=== PATIENT | female | born 1990 | race Caucasian/White ===

== ENCOUNTER → 2018-05-08 11:40 | Outpatient (CLI) | payer MEDICAID, SELFPAY | PROVIDERS: Family Provider Student in an Organized Health Care Education/Training Program; PCP Student in an Organized Health Care Education/Training Program; Visit Provider Family Medicine | DX: R00.2 Palpitations (principal) | CPT/HCPCS: 93225; 93226 ==

== ENCOUNTER 2019-12-11 17:05 | Outpatient (CLI) | payer BC, SELFPAY ==
[2017-05-06 10:44] VITALS: BMI 22.1
[2019-12-11 17:41] VITALS: BP 112/72; PULSE 87; TEMP 98.2
[2019-12-11 17:56] VITALS: BMI 28.5
--- NOTE | 2019-12-14 05:54 | OB.TRI.NOTE ---
History of Present Illness Date of Service: 12/11/19 Was patient seen by the physician?: No Reason For Visit: R/O LABOR Date of Service: 12/11/19 Final COLEEN Source: US <20 weeks Gestational age: 40 1/ Allergies No Known Allergies Allergy (Verified 12/12/19 17:17) NST - FHR Rate Baby A Baseline: 135 Variability:: Moderate Accelerations:: 15 x 15 Decelerations:: None NST Reactive:: Yes FHR Category:: Category I Uterine Activity:: irreg ctxs Impression/Plan 40 1/7 weeks nulliparrous patient with false labor home w/ labor precautions
== END 2019-12-11 20:10 | disposition home or self-care (01) ==
LOC: WPOUT 17:10 → OBT 17:10
PROVIDERS: PCP Student in an Organized Health Care Education/Training Program; Referring Provider Advanced Practice Midwife; Visit Provider Advanced Practice Midwife
DX: O47.1 False labor at or after 37 completed weeks of gestation (principal); Z3A.40 40 weeks gestation of pregnancy
CPT/HCPCS: 59025; 59050; 99218; G0378

== ENCOUNTER 2019-12-12 14:30 | Inpatient (IN) | payer BC, SELFPAY ==
[2019-12-11 17:56] VITALS: BMI 28.5
[2019-12-12] VITALS (38 sets, daily range): BP systolic 82–125; BP diastolic 54–81; PULSE 74–108; TEMP 96.4–99; O2SAT 93–100; BMI 28.5
--- NOTE | 2019-12-12 02:27 | OB.TRI.PN ---
Progress Notes Date of Service: 12/12/19 Progress Note: Presented to triage with irregular contractions ranging from 3-10 minutes apart. No leakage of fluid, vaginal bleeding or other concerns. Good movements. Breathing through contractions. O: FHR 135, moderate variability, accels, no decels, Reactive TOCO:every 5-10 minutes, moderate to palpation Cervix: 1.5cm/70%/-1 A: False Labor P: 1) Cervical exam unchanged. Discharge home and reviewed by nursing staff labor instructions.
[2019-12-12] MEDS: morphine 10 MG/ML Syringe IM (02:56)
[2019-12-12] MEDS: proMETHazine 25 MG/ML Syringe 12.5 MG IM (02:56)
[2019-12-12] MEDS: Lactated Ringers 1,000 ML 50 ML IV (14:47)
[2019-12-12] MEDS: Lactated Ringers 500 ML 999 ML IV (14:52)
[2019-12-12 15:05] LABS: Absolute Lymphocyte Count 1.44 X10^3/uL (0.83-4.51); Absolute Neutrophil Count 9.7 X10^3/uL (2.0-7.7); Basophil# 0.01 X10^3/uL; Basophil% 0.1 % (0-1); Eosinophil# 0.04 X10^3/uL; Eosinophils% 0.3 % (0-5); Hematocrit 40.1 % (37-47); Hemoglobin 13.6 g/dL (12.0-15.0); Lymphocyte # 1.44 X10^3/ul (4.0); Lymphocyte % 11.9 % (19-41); Mean Corp Hgb Conc 33.9 g/dL (32-36); Mean Corpuscular Hgb 30.6 pg (27.0-32.0); Mean Corpuscular Volume 90.1 fL (81-99); Mean Platelet Vol. 10.3 fl (6.2-12.0); Monocyte# 0.86 X10^3/uL; Monocyte% 7.1 % (0-10); NRBC Flagged by Analyzer 0 % (0-5); Neutrophil # 9.67 X10^3/uL (2.7-7.7); Platelet Count 203 K/mm3 (150-450); RBC Distribution Width CV 12.7 % (11.6-14.6); RBC Distribution Width SD 41.7 fl (35.1-43.9); Red Blood Count 4.45 M/mm3 (4.2-5.4); White Blood Count 12.1 K/mm3 (4.4-11.0)
[2019-12-12] MEDS: fentaNYL-bupivacaine (epidural) 100 ML BAG EPIDURAL ×2 (16:15→20:42)
[2019-12-12] MEDS: Ondansetron 4 MG/2 ML Vial IV (17:05)
[2019-12-12] MEDS: Lactated Ringers 1,000 ML 200 ML IV ×2 (18:01→22:56)
--- NOTE | 2019-12-12 18:07 | HP.PCM_ITS ---
History Date of Admission: 12/12/19 Final COLEEN: 12/10/19 Gestational age: 40 Weeks and 2 Days History of this : This is a 29 year-old, G 1P0 @ 40.2 weeks with SROM in office 2pm, clear fluid. pt denies other concerns today. Allergies No Known Allergies Allergy (Verified 12/12/19 17:17) Home Medications: Home Medications Vits [Prenatabs FA] 1 tab PO DAILY 12/11/19 Smoking Status: Never smoker Alcohol: None Number of Fetus(es): 1 NST - FHR Rate Baby A Baseline: 140 Variability:: Moderate Accelerations:: 15 x 15 Decelerations:: None NST Reactive:: Yes FHR Category:: Category I Uterine Activity:: 2-5 min History Past Pregnancies: Past Pregnancies Delivery Date Name GA/ Weeks Outcome Route Wt Sex Labor Length Anesthesia Delivery Location Provider FOB Expected Delivery Method: Spontaneous Vaginal Physical Exam General: Alert, Oriented x3 Abdomen: Soft, Non Tender, Gravid Neurological: Cranial nerves II-XII grossly intact FIELD ARTILLERY CANNONEER: Normal external genitalia Estimated gestational size: Large for gestational age - 6lb5oz at 34 weeks- estimate around 8.5--9lbs. Presentation: Cephalic Cervix Dilation (cm): 4.5 Station: -3 Effacement (%): 90 Assessment/Plan This is a 29 year-old, @ 40.2 weeks, in labor 1) admit to L&D 2) monitor fhr/toco 3) anticipate 4) OP position on exam- maternal positions changes recommended, not able to manually rotate 5) Pitocin if indicated 6) epidural in place
[2019-12-13] VITALS (59 sets, daily range): BP systolic 96–126; BP diastolic 51–87; PULSE 66–109; RESP 15–18; TEMP 36.3–37.6; O2SAT 80–100
[2019-12-13] MEDS: Oxytocin 30 units/NS 500 ml 30 UNITS/500 ML IV.SOLN IV (00:31)
[2019-12-13] MEDS: Mag Hydrox/Al Hydrox/Simeth 30 ML UDC PO (01:13)
[2019-12-13] MEDS: fentaNYL-bupivacaine (epidural) 100 ML BAG EPIDURAL (02:06)
--- NOTE | 2019-12-13 02:09 | PCM.PN.BLA ---
Progress Note pt seen at bedside, pushing well. Contractions area spaced out- pitocin was started previously to help with ctx frequency and maternal pushing efforts. FHR tracing reviewed.
[2019-12-13] MEDS: Lactated Ringers 1,000 ML 200 ML IV (03:55)
--- NOTE | 2019-12-13 04:15 | PCM.PN.BLA ---
Progress Note been pushing intermittently with patient- good maternal efforts with minimal decent of head. head remains at +2 station - pushing for nearly 4 hours. At this time Reviewed with patient again that Primary cs for arrest of descent. pt and were given time to discuss alone- will notify us of decision shortly.
--- NOTE | 2019-12-13 04:21 | PCM.PN.BLA ---
Progress Note Decision for C/S for Arrest of descent - reviewed risks of cs including but not limited to bleeding, infection, injury to pelvic structures. pt and wish to proceed. OR team notified. Epidural in place. Azithromycin and Ancef ordered.
--- NOTE | 2019-12-13 04:23 | OP.PCM_ITS ---
Delivery Classification: CHANDA Final COLEEN: 12/10/19 Final COLEEN Source: US <20 weeks Gestational age: 40 Weeks and 3 Days residential nurse: Abrahan Abad Type of Anesthesia:: Epidural Date of Procedure: 12/13/19 Pre-Operative Diagnosis: term gestation, Arrest of descent Post-Operative Diagnosis: same, live male Indications: arrest of descent Indications for : Arrrest of Descent Description of Procedure: After informed consent was obtained the patient was taken the operating room she was given spinal anesthesia. She was then placed in the supine position. She was prepped and draped in the normal sterile fashion. Anesthesia was found to be adequate. At this time a Pfannenstiel skin incision was made with a knife was carried down to the underlying layer of the fascia. The fascial incision was then extended laterally using curved Hickey scissor. Attention was then turned to the superior aspect of the fascial edge was grasped with 2 straight [place] clamps tented up and the rectus muscle dissected off sharply using curved Hickey scissor. Attention was then turned to the inferior aspect where again [place] clamps were placed in the rectus muscles were tented up and the fascia was dissected off sharply using the curved Hickey scissor. Rectus muscles were then in the midline bluntly and peritoneum was entered bluntly. Gentle opposing traction was placed. At this time the vesicouterine peritoneum was identified. Scalpel was used to make a uterine incision in a low transverse fashion. The uterus was then entered bluntly gentle opposing traction was placed to extend this incision. with assistance from push up of head from vagina i was able to disengage head and rotate and flex infant head from a direct OP position. 's head was brought to the uterine incision was delivered atraumatically. Cord was clamped and cut was handed to the waiting nursery team. The Placenta was removed from the uterus. The uterus was then removed from the abdominal cavity. The uterus was cleared of all clots and debris using a lap. At this time the uterine incision was reapproximated using #1 Vicryl in a running locked fashion. left lateral extension through broad ligament. Repaired superficially to obtain hemostasis. Pt had what appeared to be significant endometriosis of posterior uterus, and tubes. Pressure was held on extension site and floseal was placed- excellent hemostasis appreciated. On posterior aspect of uterus the right side where there appeared to be significant endometriotic disease was bleeding-running locking suture with 2-0 vicryl placed- followed by pressure and douglas- good hemostasis was noted. Posterior cul-de-sac was then cleared of all clots and debris. Uterus was placed back in the abdominal cavity. Gutters were cleared of all clots and debris. Uterine incision was reevaluated and noted to be of excellent hemostasis including the Left lower broad ligament extension. At this time the peritoneum and muscle was grasped with Kellys reapproximated using #2 Vicryl suture in a running fashion. Douglas placed of rectus muscle. Fascia was then reapproximated using #1 Vicryl in a running fashion. Douglas placed in Subcu layer and it was then reapproximated with #2 0 plain gut suture in an interrupted fashion. Subcu layer was closed using 4-0 Monocryl in a subcu fashion. Dry sterile dressing was applied. Instrument lap needle count correct ?2. Anticipated normal postoperative course. i discussed with and patient that I DO NOT RECOMMEND vaginal delivery for future pregnancies. Amniotic Membrane Rupture Type: Spontaneous Amniotic Fluid Description: Clear Placenta Disposition: [facility] Drain: [place] to straight drain Fluids Replaced: 1200 Cord Entanglement: None Cord Vessel Description: 3 Vessels Esitmated Blood Loss (ml): 700 Infant Gender: Male (1 minute): 8 (5 minute): 9 Delayed cord clamping: No Antibiotic Given: Ancef 2 grams IV x1, Zithromax 500 mg/5 mL X1 Pt instructed on risks of surgery: Bleeding, Anesthesia Risks, Infection, Injury to surrounding structure(s) including bowel and bladder Complications: None - Admit VTE Documentation VTE Present on Admission: Yes VTE Mechan Device Prophylaxis: SCD's VTE Pharm Prophylaxis ordered?: No
[2019-12-13] MEDS: Sodium Citrate/Citric Acid 30 ML UDC PO ×2 (04:35→04:37)
[2019-12-13] MEDS: Cefazolin 2 GM in 0.9% Normal Saline 100 ML IV (04:50)
[2019-12-13] MEDS: Oxytocin 30 units/NS 500 ml 30 UNITS/500 ML IV.SOLN 167 UNITS IV (06:22)
[2019-12-13] MEDS: Lactated Ringers 1,000 ML 100 ML IV (06:26)
[2019-12-13] MEDS: HYDROmorphone 1 MG/ML Syringe IV ×5 (06:49→22:34)
[2019-12-13] MEDS: 0.9% Saline Lock 10 ML Syringe IV ×5 (06:49→22:33)
--- NOTE | 2019-12-13 08:42 | NURSING ---
Indwelling vo catheter present. WNL.
[2019-12-13] MEDS: Acetaminophen 500 MG Tablet 1000 MG PO ×2 (09:52→21:13)
--- NOTE | 2019-12-13 10:30 | NURSING ---
Epidural catheter removed. Blue tip intact. Patient tolerated well.
[2019-12-13 11:59] LABS: Hematocrit 31.6 % (37-47); Hemoglobin 10.7 g/dL (12.0-15.0); Mean Corp Hgb Conc 33.9 g/dL (32-36); Mean Corpuscular Hgb 31.1 pg (27.0-32.0); Mean Corpuscular Volume 91.9 fL (81-99); Mean Platelet Vol. 10.2 fl (6.2-12.0); Platelet Count 140 K/mm3 (150-450); RBC Distribution Width CV 12.6 % (11.6-14.6); RBC Distribution Width SD 41.6 fl (35.1-43.9); Red Blood Count 3.44 M/mm3 (4.2-5.4); White Blood Count 17.1 K/mm3 (4.4-11.0)
[2019-12-13 12:13] LABS: Anion Gap 8 (5-15); BUN 7 mg/dL (7-18); BUN/Creat Ratio 8.8 RATIO (10-20); Calcium,Total 8.1 mg/dL (8.5-10.1); Chloride 109 mmol/L (98-107); Creatinine, Serum 0.79 mg/dL (0.55-1.02); EST Glomerular Filtration Rate 91 mL/min (>60); Est Glom Filt Rate - Afr Amer 110 mL/min (>60); Glucose 110 mg/dL (74-106); Potassium 3.4 mmol/L (3.5-5.1); Sodium Level 138 mmol/L (136-145)
[2019-12-13] MEDS: Ketorolac 30 MG/ML Syringe IV ×2 (13:03→18:44)
[2019-12-13] MEDS: Senna/Docusate Sodium 1 Tablet PO (20:31)
[2019-12-13] MEDS: oxyCODONE 5 MG Tablet PO (20:31)
--- NOTE | 2019-12-13 22:50 | NURSING ---
This RN did some coughing and deep breathing with patient. No IS in room. Respiratory called to bring IS down when able.
[2019-12-14] VITALS (10 sets, daily range): BP systolic 96–110; BP diastolic 55–69; PULSE 74–88; RESP 15–18; TEMP 36.4–36.8; O2SAT 96–97
[2019-12-14] MEDS: Ketorolac 30 MG/ML Syringe IV ×5 (00:08→23:55)
[2019-12-14] MEDS: 0.9% Saline Lock 10 ML Syringe IV ×5 (00:08→23:56)
[2019-12-14] MEDS: oxyCODONE 5 MG Tablet PO ×5 (00:43→23:14)
--- NOTE | 2019-12-14 05:45 | PN.OBGYN_ITS ---
Subjective: pain better controlled this am. Worse right than left. No N/V. Maria Elena. Po. Has been up to urinate. - Physical Exam Vitals/I&O's: Vital Signs Temp Pulse Resp BP Pulse Ox 98.2 F 74 15 96/55 L 97 12/14/19 04:18 12/14/19 04:18 12/14/19 04:18 12/14/19 04:18 12/14/19 04:18 Oxygen Delivery Method Room Air Weight: 82.554 kg Body Mass Index (BMI) 28.5 Intake and Output for Last 24 Hours 12/12/19 12/13/19 12/14/19 23:59 23:59 23:59 Intake Total 3487.50 / 3487.50 5500.87 / 5500.87 Output Total 400 / 400 2600 / 2600 200 / 200 Balance 3087.50 / 3087.50 2900.87 / 2900.87 -200 / -200 General: Alert, Cooperative, No apparent distress Abdomen: Soft, Distended - mildly, softl, Tender - appropriately, no rebound or guarding Extremities: Edema - 2+ Skin: Incision - bandage is clean, dry and intact Laboratory Results 12/13/19 11:40: WBC 17.1 H, RBC 3.44 L, Hgb 10.7 L, Hct 31.6 L, MCV 91.9, MCH 31.1, MCHC 33.9, RDW Std Deviation 41.6, RDW Coeff of [place] 12.6, Plt Count 140 L, MPV 10.2 12/13/19 11:40: Sodium 138, Potassium 3.4 L, Chloride 109 H, Carbon Dioxide 21.0, Anion Gap 8, BUN 7, Creatinine 0.79, Estim Creat Clear Calc 103.10, Est GFR (MDRD) Af Amer 110, Est GFR (MDRD) Non-Af 91, BUN/Creatinine Ratio 8.8 L, Glucose 110 H, Calcium 8.1 L Current Medications Acetaminophen (Tylenol) 1,000 mg PO Q8H PRN PRN PRN Reason: Pain Score 1-3/10;Temp>99.6F Last Admin: 12/13/19 21:13 Dose: 1,000 mg Documented by: Bisacodyl (Dulcolax) 10 mg RECTAL UD PRN PRN Reason: If no BM Hydrocortisone (Hytone) 1 applic TOPICAL TID PRN PRN; Protocol PRN Reason: Discomfort Lactated Ringer's () 1,000 mls @ 100 mls/hr IV .Q10H [facility] Last Admin: 12/14/19 03:03 Dose: Not Given Documented by: Naloxone HCl 4 mg/ Dextrose 504 mls @ 0 mls/hr IV .Q0M PRN; Protocol PRN Reason: Respiratory depression Ibuprofen (Motrin) 600 mg PO Q6H PRN PRN PRN Reason: Pain Score 1-3/10 Ketorolac Tromethamine (Toradol (Bkc)) 30 mg IV Q6H [facility] Stop: 12/15/19 06:01 Last Admin: 12/14/19 00:08 Dose: 30 mg Documented by: Methylergonovine Maleate (Methergine) 0.2 mg IM X1 PRN PRN Reason: Uterine Atony Naloxone HCl (Narcan) 0.02 mg IV Q1M PRN PRN Reason: RR <10 and pt unresponsive Ondansetron HCl (Zofran) 4 mg IV Q4H PRN PRN PRN Reason: Nausea Oxycodone HCl (Oxyir) 5 - 10 mg PO Q4H PRN PRN PRN Reason: Pain Score 4-10/10 Last Admin: 12/14/19 05:14 Dose: 10 mg Documented by: Prochlorperazine Edisylate (Compazine Iv) 10 mg IV Q6H PRN PRN PRN Reason: NAUSEA Senna/Docusate Sodium (Senokot-S, Sarah-Colace) 0 tablet PO DAILY PRN PRN Reason: Constipation Last Admin: 12/13/19 20:31 Dose: 2 tablet Documented by: Simethicone (Mylicon) 80 mg PO PCHS PRN PRN Reason: Indigestion/stomach pain Sodium Chloride () 5 - 15 ml IV UD PRN PRN Reason: SALINE FLUSH Last Admin: 12/14/19 00:08 Dose: 15 ml Documented by: Medical Necessity - Tobacco Use Smoking Status: Never smoker Assessment/Plan POD#1 s/p primary c/s for arrest of descent repeat cbc pending this am ambulate and doing well
[2019-12-14 06:12] LABS: Hematocrit 27.9 % (37-47); Hemoglobin 9.4 g/dL (12.0-15.0); Mean Corp Hgb Conc 33.7 g/dL (32-36); Mean Corpuscular Hgb 31.1 pg (27.0-32.0); Mean Corpuscular Volume 92.4 fL (81-99); Mean Platelet Vol. 9.9 fl (6.2-12.0); Platelet Count 123 K/mm3 (150-450); RBC Distribution Width CV 12.8 % (11.6-14.6); RBC Distribution Width SD 43.7 fl (35.1-43.9); Red Blood Count 3.02 M/mm3 (4.2-5.4); White Blood Count 14.4 K/mm3 (4.4-11.0)
[2019-12-14] MEDS: Acetaminophen 500 MG Tablet 1000 MG PO (08:11)
[2019-12-14] MEDS: Senna/Docusate Sodium 1 Tablet PO (20:20)
[2019-12-15] VITALS (10 sets, daily range): BP systolic 101–107; BP diastolic 54–71; PULSE 73–97; RESP 16; TEMP 36.8–36.9; O2SAT 96–97
[2019-12-15] MEDS: oxyCODONE 5 MG Tablet PO ×3 (04:03→22:23)
[2019-12-15] MEDS: Ketorolac 30 MG/ML Syringe IV (05:58)
[2019-12-15] MEDS: 0.9% Saline Lock 10 ML Syringe IV (05:58)
--- NOTE | 2019-12-15 08:23 | PCM.PN.OB ---
Subjective: Seen at bedside, doing well. Patient reports good pain control. Mild lochia. Breast-feeding going well. Denies any chest pain, shortness of breath, dizziness. Is voiding and ambulating without difficulty. Passing flatus. Pain is controlled. Requesting DC home tomorrow - Physical Exam Vitals/I&O's: Vital Signs Temp Pulse Resp BP Pulse Ox 98.2 F 75 16 101/65 97 12/15/19 02:12 12/15/19 02:12 12/15/19 02:12 12/15/19 02:12 12/14/19 04:18 Oxygen Delivery Method Room Air Weight: 82.554 kg Body Mass Index (BMI) 28.5 Intake and Output for Last 24 Hours 12/13/19 12/14/19 12/15/19 23:59 23:59 23:59 Intake Total 5500.87 / 5500.87 Output Total 2600 / 2600 200 / 200 Balance 2900.87 / 2900.87 -200 / -200 General: Alert, Oriented x3 Abdomen: Soft, Non-Distended, - - incision dressing dry and intact, Fundus firm Extremities: No Calf Tenderness Current Medications Acetaminophen (Tylenol) 1,000 mg PO Q8H PRN PRN PRN Reason: Pain Score 1-3/10;Temp>99.6F Last Admin: 12/14/19 08:11 Dose: 1,000 mg Documented by: Bisacodyl (Dulcolax) 10 mg RECTAL UD PRN PRN Reason: If no BM Hydrocortisone (Hytone) 1 applic TOPICAL TID PRN PRN; Protocol PRN Reason: Discomfort Naloxone HCl 4 mg/ Dextrose 504 mls @ 0 mls/hr IV .Q0M PRN; Protocol PRN Reason: Respiratory depression Ibuprofen (Motrin) 600 mg PO Q6H PRN PRN PRN Reason: Pain Score 1-3/10 Methylergonovine Maleate (Methergine) 0.2 mg IM X1 PRN PRN Reason: Uterine Atony Naloxone HCl (Narcan) 0.02 mg IV Q1M PRN PRN Reason: RR <10 and pt unresponsive Ondansetron HCl (Zofran) 4 mg IV Q4H PRN PRN PRN Reason: Nausea Oxycodone HCl (Oxyir) 5 - 10 mg PO Q4H PRN PRN PRN Reason: Pain Score 4-10/10 Last Admin: 12/15/19 04:03 Dose: 10 mg Documented by: Prochlorperazine Edisylate (Compazine Iv) 10 mg IV Q6H PRN PRN PRN Reason: NAUSEA Senna/Docusate Sodium (Senokot-S, Sarah-Colace) 0 tablet PO DAILY PRN PRN Reason: Constipation Last Admin: 12/14/19 20:20 Dose: 2 tablet Documented by: Simethicone (Mylicon) 80 mg PO PCHS PRN PRN Reason: Indigestion/stomach pain Sodium Chloride () 5 - 15 ml IV UD PRN PRN Reason: SALINE FLUSH Last Admin: 12/15/19 05:58 Dose: 10 ml Documented by: Medical Necessity - Tobacco Use Smoking Status: Never smoker Assessment/Plan POD#2, doing well routine care pain mgmt ambulation dc home tomorrow
[2019-12-15] MEDS: Ibuprofen 600 MG Tablet PO ×2 (12:50→20:31)
[2019-12-16 01:14] VITALS: BP 98/63; PULSE 69; PULSE 75; PULSE 77; RESP 16; TEMP 36.6; O2SAT 97
[2019-12-16] MEDS: Ibuprofen 600 MG Tablet PO (05:00)
--- NOTE | 2019-12-16 08:18 | PCM.PN.OB ---
Subjective: Patient seen at bedside, doing well. Patient reports good pain control. Mild lochia. Breast-feeding without difficulty. She is passing flatus and voiding without difficulty. Patient ready for DC home today. - Physical Exam Vitals/I&O's: Vital Signs Temp Pulse Resp BP Pulse Ox 97.8 F 77 16 98/63 97 12/16/19 01:14 12/16/19 01:14 12/16/19 01:14 12/16/19 01:14 12/16/19 01:14 Oxygen Delivery Method Room Air Weight: 82.554 kg Body Mass Index (BMI) 28.5 Intake and Output for Last 24 Hours 12/14/19 12/15/19 12/16/19 23:59 23:59 23:59 Output Total 200 / 200 Balance -200 / -200 General: Alert, Oriented x3 Abdomen: Soft, Non-Distended, - - Fundus firm, incision dressing dry and intact Extremities: No Calf Tenderness Neurological: Cranial nerves II-XII grossly intact Current Medications Acetaminophen (Tylenol) 1,000 mg PO Q8H PRN PRN PRN Reason: Pain Score 1-3/10;Temp>99.6F Last Admin: 12/14/19 08:11 Dose: 1,000 mg Documented by: Bisacodyl (Dulcolax) 10 mg RECTAL UD PRN PRN Reason: If no BM Hydrocortisone (Hytone) 1 applic TOPICAL TID PRN PRN; Protocol PRN Reason: Discomfort Naloxone HCl 4 mg/ Dextrose 504 mls @ 0 mls/hr IV .Q0M PRN; Protocol PRN Reason: Respiratory depression Ibuprofen (Motrin) 600 mg PO Q6H PRN PRN PRN Reason: Pain Score 1-3/10 Last Admin: 12/16/19 05:00 Dose: 600 mg Documented by: Methylergonovine Maleate (Methergine) 0.2 mg IM X1 PRN PRN Reason: Uterine Atony Naloxone HCl (Narcan) 0.02 mg IV Q1M PRN PRN Reason: RR <10 and pt unresponsive Ondansetron HCl (Zofran) 4 mg IV Q4H PRN PRN PRN Reason: Nausea Oxycodone HCl (Oxyir) 5 - 10 mg PO Q4H PRN PRN PRN Reason: Pain Score 4-10/10 Last Admin: 12/15/19 22:23 Dose: 5 mg Documented by: Prochlorperazine Edisylate (Compazine Iv) 10 mg IV Q6H PRN PRN PRN Reason: NAUSEA Senna/Docusate Sodium (Senokot-S, Sarah-Colace) 0 tablet PO DAILY PRN PRN Reason: Constipation Last Admin: 12/14/19 20:20 Dose: 2 tablet Documented by: Simethicone (Mylicon) 80 mg PO PCHS PRN PRN Reason: Indigestion/stomach pain Sodium Chloride () 5 - 15 ml IV UD PRN PRN Reason: SALINE FLUSH Last Admin: 12/15/19 05:58 Dose: 10 ml Documented by: Medical Necessity - Tobacco Use Smoking Status: Never smoker Assessment/Plan POD #3, doing well Routine care Ambulation Pain management DC home
--- NOTE | 2019-12-16 08:19 | DCINST_ITS ---
Discharge Diet: No Restrictions Discharge Activity: Return to Normal Activity, May Not Drive - for 2 weeks, May not drive while taking narcotic pain medications., May Shower, May Take a Tub Bath - in 7 days. May resume sexual activity in: 4-6 weeks Lifting Restrictions: 20 pounds Additional Activity Instructions:: Nothing in the vagina for 4-6 weeks. You may return to work/school in 6 weeks. Call your doctor if your incision/area has: Continuous Slow Oozing, Sudden Increased Bleeding, Increased Pain/ Swelling, Increased Redness, Foul Smelling Discharge Call your doctor if you observe: Fever of 101 or Higher, Using more than one pad per hour - for 2 hours Suture Line Care: Avoid Pulling/Pushing, Avoid Pinching/Bending Cleanse incision/area with: Keep Dressing Clean & Dry Additional Instructions: If you experience any of the following, contact your healthcare provider. * Bleeding that soaks a pad every hour for 2 hours * Fever 100.4 or higher * Unrelieved incision or abdominal pain * Swelling, redness, discharge or bleeding from your incision or episiotomy site * Your incision begins to separate * Problems urinating (including inability to urinate or burning while urinating). * Visual changes * Severe headache * Flu-like symptoms * Pain or redness in one of both of your breasts * Pain, warmth, tenderness or swelling in your legs, especially the calf area * Frequent nausea and vomiting * Symptoms of depression or anxiety If you experience any of the following, call 911 or go to the nearest Emergency Room. * Chest pain * Problems breathing * Seizure activity * Partial or complete paralysis of a body part, slurred speech, weakness or drooping of the face, or a sudden inability to walk or hold your balance Allergies/Adverse Reactions: Allergies No Known Allergies Allergy (Verified 12/12/19 17:17) Medications to take at Discharge Vits [Prenatabs FA ] 1 tab PO DAILY 12/11/19 Acetaminophen [Tylenol] 1,000 mg PO Q8H PRN PRN #60 tab 12/15/19 Ibuprofen [Motrin] 600 mg PO Q6H PRN PRN #60 tab 12/15/19 Oxycodone [Oxyir] 5 - 10 mg PO Q4H PRN PRN 7 Days #20 tab 12/15/19 Senna/Docusate Sodium [Senokot-S] 1 tab PO DAILY PRN #20 tab 12/15/19 SimETHICONE [Mylicon] 80 mg PO PCHS PRN #30 tab 12/15/19 The following prescriptions were given: Ibuprofen [Motrin] 600 mg PO Q6H PRN PRN #60 tab PRN Reason: Pain Score 1-3/10 [facility] SimETHICONE [Mylicon] 80 mg PO PCHS PRN #30 tab PRN Reason: Indigestion/stomach pain Transmission Status: [facility] Oxycodone [Oxyir] 5 - 10 mg PO Q4H PRN PRN 7 Days #20 tab PRN Reason: Pain Score 4-10/10 Transmission [facility] Senna/Docusate Sodium [Senokot-S] 1 tab PO DAILY PRN #20 tab PRN Reason: Constipation Transmission Status[facility] Acetaminophen [Tylenol] 1,000 mg PO Q8H PRN PRN #60 tab PRN Reason: Pain Score 1-3/10;Temp>99.6F Transmission Status[facility] Follow-Up: Call to make an appointment with your doctor for an incision check in 1-2 weeks. You will also need a 6 week post- follow up appointment. Test results from this visit will be discussed in further detail at your follow- up appointment, if applicable. Please Follow Up With: Myriam Ivey MD - Call to make an appointment for an incision check in 1-2 [phone] When: You will need a post- check in 6 weeks. Primary Care Physician: Jae Ochoa DO [Primary Care Provider] -
--- NOTE | 2019-12-16 08:21 | DS.PCM_ITS ---
Discharge Summary Date of Admission: 01/10/20 Date of Discharge: 12/16/19 Summary: Patient was admitted on 12/12/2019 in spontaneous labor. Patient progressed to fully dilated and pushed for approximately 4 hours with arrest of descent of the head. Patient underwent a primary low transverse section infant was in the OP position. She had a left broad ligament extension that was repaired and FloSeal applied. Hemoglobin hematocrit stayed stable postoperatively. She had an uncomplicated postoperative course. I discussed with the patient and her I do not recommend any vaginal deliveries would recommend a repeat section due to the extension. Patient was di scharged home on postoperative day 3 in stable condition. - Physical Exam Vitals/I&O's: Vital Signs Temp Pulse Resp BP Pulse Ox 97.8 F 77 16 98/63 97 12/16/19 01:14 12/16/19 01:14 12/16/19 01:14 12/16/19 01:14 12/16/19 01:14 Oxygen Delivery Method Room Air Weight: 82.554 kg Body Mass Index (BMI) 28.5 Intake and Output for Last 24 Hours 12/14/19 12/15/19 12/16/19 23:59 23:59 23:59 Output Total 200 / 200 Balance -200 / -200 Current Medications Acetaminophen (Tylenol) 1,000 mg PO Q8H PRN PRN PRN Reason: Pain Score 1-3/10;Temp>99.6F Last Admin: 12/14/19 08:11 Dose: 1,000 mg Documented by: Bisacodyl (Dulcolax) 10 mg RECTAL UD PRN PRN Reason: If no BM Hydrocortisone (Hytone) 1 applic TOPICAL TID PRN PRN; Protocol PRN Reason: Discomfort Naloxone HCl 4 mg/ Dextrose 504 mls @ 0 mls/hr IV .Q0M PRN; Protocol PRN Reason: Respiratory depression Ibuprofen (Motrin) 600 mg PO Q6H PRN PRN PRN Reason: Pain Score 1-3/10 Last Admin: 12/16/19 05:00 Dose: 600 mg Documented by: Methylergonovine Maleate (Methergine) 0.2 mg IM X1 PRN PRN Reason: Uterine Atony Naloxone HCl (Narcan) 0.02 mg IV Q1M PRN PRN Reason: RR <10 and pt unresponsive Ondansetron HCl (Zofran) 4 mg IV Q4H PRN PRN PRN Reason: Nausea Oxycodone HCl (Oxyir) 5 - 10 mg PO Q4H PRN PRN PRN Reason: Pain Score 4-10/10 Last Admin: 12/15/19 22:23 Dose: 5 mg Documented by: Prochlorperazine Edisylate (Compazine Iv) 10 mg IV Q6H PRN PRN PRN Reason: NAUSEA Senna/Docusate Sodium (Senokot-S, Sarah-Colace) 0 tablet PO DAILY PRN PRN Reason: Constipation Last Admin: 12/14/19 20:20 Dose: 2 tablet Documented by: Simethicone (Mylicon) 80 mg PO PCHS PRN PRN Reason: Indigestion/stomach pain Sodium Chloride () 5 - 15 ml IV UD PRN PRN Reason: SALINE FLUSH Last Admin: 12/15/19 05:58 Dose: 10 ml Documented by:
[2019-12-16 08:31] VITALS: BP 113/73; PULSE 83; RESP 16; TEMP 36.8; O2SAT 99
[2019-12-16 08:33] VITALS: BP 113/72; PULSE 83; TEMP 98.2
[2019-12-16] MEDS: oxyCODONE 5 MG Tablet PO (09:22)
[2019-12-16] MEDS: Senna/Docusate Sodium 1 Tablet PO (09:22)
== END 2019-12-16 10:35 | disposition home or self-care (01) | DRG 788 ==
PROVIDERS: Admitting Provider Obstetrics & Gynecology; PCP Student in an Organized Health Care Education/Training Program; Referring Provider Obstetrics & Gynecology; Visit Provider Obstetrics & Gynecology
DX: O62.1 Secondary uterine inertia (principal); Z37.0 Single live birth; Z3A.40 40 weeks gestation of pregnancy
CPT/HCPCS: 59025; 59050; 80048; 85025; 85027; 86850; 86900; 86901; 96372; 99218; J7120; A4216; G0378; J2405

== ENCOUNTER 2020-07-02 09:49 | Outpatient (RCR) | payer BC, SELFPAY ==
[2019-12-12 01:32] VITALS: BMI 28.5
== END 2020-07-16 23:59 ==
LOC: EMPH 09:49
PROVIDERS: PCP Student in an Organized Health Care Education/Training Program; Visit Provider Family Medicine Geriatric Medicine
DX: Z11.59 Encounter for screening for other viral diseases (principal)
CPT/HCPCS: 87635; U0003

== ENCOUNTER 2020-07-27 08:29 | Outpatient (RCR) | payer BC, SELFPAY ==
[2019-12-12 01:32] VITALS: BMI 28.5
== END 2020-08-16 23:59 ==
LOC: EMPH 08:29
PROVIDERS: Visit Provider Family Medicine Geriatric Medicine
DX: Z11.59 Encounter for screening for other viral diseases (principal)
CPT/HCPCS: 87635; U0003

== ENCOUNTER 2020-08-22 10:06 | Outpatient (RCR) | payer BC, SELFPAY ==
[2019-12-12 01:32] VITALS: BMI 28.5
== END 2020-09-15 23:59 ==
LOC: EMPH 10:06
PROVIDERS: Referring Provider Family Medicine Geriatric Medicine; Visit Provider Family Medicine Geriatric Medicine
DX: Z03.818 Encounter for observation for suspected exposure to other biological agents ruled out (principal)
CPT/HCPCS: 87426

== ENCOUNTER 2020-10-15 16:53 | Outpatient (RCR) | payer BC, SELFPAY ==
[2019-12-12 01:32] VITALS: BMI 28.5
== END 2020-10-16 23:59 ==
LOC: EMPH 16:53
PROVIDERS: Referring Provider Family Medicine Geriatric Medicine; Visit Provider Family Medicine Geriatric Medicine
DX: Z03.818 Encounter for observation for suspected exposure to other biological agents ruled out (principal)
CPT/HCPCS: 87426

== ENCOUNTER 2020-11-14 17:01 | Outpatient (RCR) | payer BC, SELFPAY ==
[2019-12-12 01:32] VITALS: BMI 28.5
== END 2020-11-16 23:59 ==
LOC: EMPH 17:01
PROVIDERS: Referring Provider Family Medicine Geriatric Medicine; Visit Provider Family Medicine Geriatric Medicine
DX: Z03.818 Encounter for observation for suspected exposure to other biological agents ruled out (principal)
CPT/HCPCS: 87426

== ENCOUNTER 2020-12-17 16:52 | Outpatient (RCR) | payer BC, SELFPAY ==
[2019-12-12 01:32] VITALS: BMI 28.5
== END 2021-01-14 23:59 ==
LOC: EMPH 16:52
PROVIDERS: Referring Provider Family Medicine Geriatric Medicine; Visit Provider Family Medicine Geriatric Medicine
DX: Z03.818 Encounter for observation for suspected exposure to other biological agents ruled out (principal)
CPT/HCPCS: 87426

== ENCOUNTER 2021-02-13 16:48 | Outpatient (RCR) | payer BC, SELFPAY ==
[2019-12-12 01:32] VITALS: BMI 28.5
== END 2021-02-13 23:59 ==
LOC: EMPH 16:48
PROVIDERS: Referring Provider Family Medicine Geriatric Medicine; Visit Provider Family Medicine Geriatric Medicine
DX: Z03.818 Encounter for observation for suspected exposure to other biological agents ruled out (principal)
CPT/HCPCS: 87426

== ENCOUNTER 2021-02-24 12:17 | Outpatient (RCR) | payer BC, SELFPAY ==
[2019-12-12 01:32] VITALS: BMI 28.5
== END 2021-03-16 23:59 ==
LOC: EMPH 12:17
PROVIDERS: Referring Provider Family Medicine Geriatric Medicine; Visit Provider Family Medicine Geriatric Medicine
DX: Z03.818 Encounter for observation for suspected exposure to other biological agents ruled out (principal)
CPT/HCPCS: 87426

== ENCOUNTER 2021-06-11 11:52 | Outpatient (RCR) | payer BC, SELFPAY ==
[2019-12-12 01:32] VITALS: BMI 28.5
== END 2021-06-16 23:59 ==
LOC: EMPH 11:52
PROVIDERS: Referring Provider Family Medicine Geriatric Medicine; Visit Provider Family Medicine Geriatric Medicine
DX: Z03.818 Encounter for observation for suspected exposure to other biological agents ruled out (principal)
CPT/HCPCS: 87426

== ENCOUNTER 2021-07-13 16:00 | Outpatient (RCR) | payer BC, SELFPAY ==
[2021-06-17 00:14] VITALS: BMI 28.5
== END 2021-07-16 23:59 ==
LOC: EMPH 16:00
PROVIDERS: Referring Provider Family Medicine Geriatric Medicine; Visit Provider Family Medicine Geriatric Medicine
DX: Z03.818 Encounter for observation for suspected exposure to other biological agents ruled out (principal)
CPT/HCPCS: 87426; 87635; U0005; U0003

== ENCOUNTER 2021-08-16 07:37 | Outpatient (RCR) | payer BC, SELFPAY ==
[2021-07-17 00:10] VITALS: BMI 28.5
== END 2021-08-16 23:59 ==
LOC: EMPH 07:37
PROVIDERS: Referring Provider Family Medicine Geriatric Medicine; Visit Provider Family Medicine Geriatric Medicine
DX: Z03.818 Encounter for observation for suspected exposure to other biological agents ruled out (principal)

== ENCOUNTER → 2021-10-14 | Outpatient (CLI) | payer OTHER, SELFPAY | END | disposition home or self-care (01) | LOC: LABSPEC 13:04 | PROVIDERS: Referring Provider Physician Assistant; Visit Provider Physician Assistant | DX: Z11.52 Encounter for screening for COVID-19 (principal) | CPT/HCPCS: 87635; U0005; U0003 ==

== ENCOUNTER 2021-10-21 06:49 | Outpatient (RCR) | payer OTHER, SELFPAY ==
[2021-08-18 00:04] VITALS: BMI 28.5
== END 2021-11-16 23:59 ==
LOC: EMPH 06:49
PROVIDERS: Referring Provider Family Medicine Geriatric Medicine; Visit Provider Family Medicine Geriatric Medicine
DX: Z03.818 Encounter for observation for suspected exposure to other biological agents ruled out (principal)
CPT/HCPCS: 87426

== ENCOUNTER 2022-07-28 09:35 | Inpatient (IN) | payer OTHER, SELFPAY ==
--- NOTE | 2022-07-26 07:58 | PCM.HP.BLA ---
History and Physical Date of Admission: 07/28/22 Pre-Op History and Physical ? HPI: The patient is a 32 year old female presenting for pre-operative visit. She is scheduled for , for Repeat elective cs on 07/28/22. Procedure discussed along with risks, benefits and complications. Other alternatives discussed for management. Consent form signed? Yes. ? ? PAST MEDICAL HISTORY PAST MEDICAL HISTORY Diagnosis Date ? Migraine ? ? PMH - PAST MEDICAL HISTORY OF ? ? [place] ? PMH - PAST MEDICAL HISTORY OF ? ? AGE 13 YEARS - menarche ? PMH - PAST MEDICAL HISTORY OF 2003 ? normal color vision ? Sphincter of Oddi dysfunction ? ? Vitamin D deficiency 02/2014 ? ? PAST SURGICAL HISTORY PAST SURGICAL HISTORY Procedure Laterality Date ? DELIVERY ONLY ? 12/13/2019 ? LTCS- extension to left broad ligament- NO ? COLONOSCOPY FLX DX W/COLLJ SPEC WHEN PFRMD ? 04/12/2014 ? Colonoscopy ? ESOPHAGOGASTRODUODENOSCOPY TRANSORAL DIAGNOSTIC ? 04/12/2014 ? EGD ? ? ? CURRENT MEDICATIONS Current Outpatient Medications Medication Sig Dispense Refill ? hydrOXYzine pamoate (VISTARIL) 25 mg capsule Take 1 capsule by mouth three times daily as needed. 30 capsule 0 ? multivitamin (CLASSIC ) 28 mg iron- 800 mcg tab(s) Take 1 tablet by mouth once daily. ? ? ? No current facility-administered medications for this visit. ? ? ALLERGIES: Patient has no known allergies. ? PERSONAL HISTORY: SOCIAL HISTORY Social History ? Tobacco Use ? Smoking status: Never ? Smokeless tobacco: Never Vaping Use ? Vaping Use: Never used Substance Use Topics ? Alcohol use: No ? Drug use: No ? FAMILY HISTORY: FAMILY HISTORY FAMILY HISTORY Problem Relation Age of Onset ? Heart Mother ? ? SVT ? other (migraine) Mother ? ? Hypertension Father ? ? Hyperlipidemia Father ? ? Seizures Sister ? ? Hyperlipidemia Sister ? ? Hypertension Maternal Grandmother ? ? Hyperlipidemia Maternal Grandmother ? ? other (multiple myeloma) Maternal Grandmother ? ? No Known Problems Maternal Grandfather ? ? No Known Problems Paternal Grandmother ? ? Alcohol/Drug Paternal Grandfather ? ? ETOH-liver issues ? Cancer Paternal Grandfather ? ? ? REVIEW OF SYMPTOMS: NEG ? PHYSICAL EXAMINATION: ? VITALS: Blood pressure 100/62, weight 174 lb (78.9 kg), last menstrual period 11/01/2021, currently . ? GENERAL: The patient is well nourished, well hydrated in no acute distress. , The patient is oriented to time, place, and person. NECK: full range of motion ? ? IMPRESSION: @ 39 weeks - elective repeat cs ? PLAN: Elective repeat cs at 39 weeks ? Pt has been counseled on risks/benefits and alternatives of surgery including but not limited to anesthesia, bleeding, infection, injury to pelvic structures including bowel, bladder, ureters and vessels. Pt wishes to proceed with surgery at this time. ? Pre and post op instructions reviewed ? ? ? I have reviewed and updated past medical and surgical history, medications and allergies Myriam Arevalo MD ?7:54 AM Routine Office Visit on 07/23/2022 Routine Office Visit on 07/23/2022 Note shared with patient
[2022-07-28] VITALS (19 sets, daily range): BP systolic 93–106; BP diastolic 56–70; PULSE 60–105; RESP 14–16; TEMP 36.2–37.1; O2SAT 95–99; BMI 27.9
[2022-07-28] MEDS: Lactated Ringers 1,000 ML 999 ML IV (10:00)
[2022-07-28 10:17] LABS: Absolute Lymphocyte Count 1.93 X10^3/uL (0.83-4.51); Absolute Neutrophil Count 5.9 X10^3/uL (2.0-7.7); Basophil# 0.02 X10^3/uL; Basophil% 0.2 % (0-1); Eosinophil# 0.04 X10^3/uL; Eosinophils% 0.5 % (0-5); Hematocrit 40.5 % (37-47); Hemoglobin 13.6 g/dL (12.0-15.0); Lymphocyte # 1.93 X10^3/ul (0.83-4.51); Lymphocyte % 22.9 % (19-41); Mean Corp Hgb Conc 33.6 g/dL (32-36); Mean Corpuscular Hgb 30.6 pg (27.0-32.0); Mean Corpuscular Volume 91.2 fL (81-99); Mean Platelet Vol. 10.8 fl (6.2-12.0); Monocyte# 0.47 X10^3/uL; Monocyte% 5.6 % (0-10); NRBC Flagged by Analyzer 0 % (0-5); Neutrophil # 5.89 X10^3/uL (2.7-7.7); Neutrophil % 70.1 % (47-70); Platelet Count 243 K/mm3 (150-450); RBC Distribution Width CV 13.1 % (11.6-14.6); RBC Distribution Width SD 43.6 fl (35.1-43.9); Red Blood Count 4.44 M/mm3 (4.2-5.4); White Blood Count 8.4 K/mm3 (4.4-11.0)
[2022-07-28] MEDS: Lactated Ringers 1,000 ML 150 ML IV (11:15)
[2022-07-28] MEDS: Acetaminophen 500 MG Tablet 1000 MG PO ×2 (11:17→17:50)
[2022-07-28] MEDS: Sodium Citrate/Citric Acid 30 ML UDC PO (11:17)
[2022-07-28] MEDS: Cefazolin 2 GM in 0.9% Normal Saline 100 ML IV (11:27)
[2022-07-28] MEDS: Oxytocin 15 Units/NS 250ml 15 UNITS/250 ML IV.SOLN 83 UNITS IV (12:01)
[2022-07-28] MEDS: Methylergonovine 0.2 MG/ML Ampul IM (12:06)
--- NOTE | 2022-07-28 12:35 | OP.PCM_ITS ---
Details Operative Information Date of Procedure: 07/28/22 Pre-Operative Diagnosis: term gestation, repeat elective CS Post-Operative Diagnosis: same, Live male , Pelvic adhesions Classification: Scheduled Procedure Type: low transverse research professional #1: Becky Fall Type of Anesthesia: Spinal Antibiotic Given: Ancef 2 grams IV x1 Estimated Blood Loss: 800 Fluids Replaced: 750 Procedure Start Time: 11:58 Procedure Stop Time: 12:27 Time of Delivery: 12:01 Findings Description of Procedure: informed consent previously obtained- patient was given spinal anesthesia. She was then placed in the supine position. She was prepped and draped in the normal sterile fashion. Anesthesia was found to be adequate. At this time a Pfannenstiel skin incision was made with a knife was carried down to the underlying layer of the fascia. The fascial incision was then extended laterally using curved Hickey scissor. Attention was then turned to the superior aspect of the fascial edge was grasped with 2 straight [place] clamps tented up and the rectus muscle dissected off sharply using curved Hickey scissor. Rectus muscles were then in the midline bluntly and peritoneum was entered bluntly. Gentle opposing traction was placed. At this time the vesicouterine peritoneum was identified. Scalpel was used to make a uterine incision in a low transverse fashion. The uterus was then entered bluntly gentle opposing traction was placed to extend this incision. Membranes were ruptured clear. Infant's head was brought to the uterine incision was delivered atraumatically. Loose nuchal x 1 was reduced. vigorous, mouth and nose suctioned. delayed cord clamping .Cord was clamped and cut was handed to the waiting nursery team. The Placenta was removed from the uterus. The uterus was then removed from the abdominal cavity. The uterus was cleared of all clots and debris using a lap. Signfiant adhesions of bilateral fallopian tubes to anterior and lateral aspects of uteurs. At this time the uterine incision was reapproximated using #1 Vicryl in a running locked fashion. Hemostasis was appreciated. filmy adhesions to right fallopian tube were taken down. Posterior cul-de-sac was then cleared of all clots and debris- no adhesions noted. Uterus was placed back in the abdominal cavity. Gutters were cleared of all clots and debris. Uterine incision was reevaluated and noted to be of excellent hemostasis. Vanna placed. At this time the peritoneum was grasped with Kellys and muscle and peritoenum were reapproximated using #2 Vicryl suture in a running fashion. Fascia was then reapproximated using #1 Vicryl in a running fashion. Subcu layer was reapproximated with #2 0 plain gut suture in an interrupted fashion. Subcu layer was closed using 4-0 vicryl in a subcu fashion. Dry sterile dressing was applied. Instrument lap needle count correct ?2. Anticipated normal postoperative course. Dr. Fall assisted in retraction during the procedure. Presentation: Positive for Vertex Amniotic Membrane Rupture Type: Artificial Amniotic Fluid Description: Clear Placental Delivery Description: Spontaneous Placenta Disposition: [facility] Cord Vessel Description: 3 Vessels Cord Entanglement: Around neck x 1, loose Nuchal Cord Compression: Without compression Infant A Gender: Male (1 minute): 9 (5 minute): 9 Delayed Cord Clamping: Yes Complications Risks of Surgery Discussed w/Patient: Bleeding, Anesthesia Risks, Infection and Injury to surrounding structure(s) including bowel and bladder Complications: Uterine atony noted- pitocin and IM methergine given.
[2022-07-28] MEDS: Ketorolac 30 MG/ML Syringe IV ×2 (14:04→20:13)
[2022-07-28] MEDS: 0.9% Saline Lock 10 ML Syringe IV (14:05)
[2022-07-28] MEDS: Lactated Ringers 1,000 ML 100 ML IV (15:34)
--- NOTE | 2022-07-28 21:20 | NURSING ---
Pt states ambulated previous shift with RN. Pt also reports Monteiro catheter being removed today at 1730.
[2022-07-29 00:23] VITALS: BP 94/62; PULSE 67; RESP 16; TEMP 36.5; O2SAT 98
[2022-07-29] MEDS: Acetaminophen 500 MG Tablet 1000 MG PO ×4 (00:28→18:15)
[2022-07-29] MEDS: Ketorolac 30 MG/ML Syringe IV ×2 (01:46→08:09)
[2022-07-29] MEDS: 0.9% Saline Lock 10 ML Syringe IV ×2 (01:47→08:09)
[2022-07-29 03:41] VITALS: BP 99/57; PULSE 84; RESP 16; TEMP 36.8; O2SAT 97
[2022-07-29 05:50] LABS: Hematocrit 32.8 % (37-47); Hemoglobin 10.9 g/dL (12.0-15.0); Mean Corp Hgb Conc 33.2 g/dL (32-36); Mean Corpuscular Hgb 30.6 pg (27.0-32.0); Mean Corpuscular Volume 92.1 fL (81-99); Mean Platelet Vol. 10.2 fl (6.2-12.0); Platelet Count 181 K/mm3 (150-450); RBC Distribution Width CV 13.2 % (11.6-14.6); RBC Distribution Width SD 44.3 fl (35.1-43.9); Red Blood Count 3.56 M/mm3 (4.2-5.4); White Blood Count 12.8 K/mm3 (4.4-11.0)
[2022-07-29 07:20] VITALS: BP 102/65; PULSE 67; RESP 18; TEMP 36.4; O2SAT 97
[2022-07-29] MEDS: Senna/Docusate Sodium 1 Tablet PO (11:17)
[2022-07-29] MEDS: FLU VACC QS2022-23(6MOS UP)/PF 60 MCG/0.5 ML SYRINGE IM (11:20)
--- NOTE | 2022-07-29 12:18 | PCM.PN.OB ---
Subjective Subjective Denies complaints Objective Data Objective Data Vital Signs: Vital Signs Temp Pulse Resp BP Pulse Ox O2 Del Method 97.5 F L 67 18 102/65 97 Room Air 07/29/22 07:20 07/29/22 07:20 07/29/22 07:20 07/29/22 07:20 07/29/22 07:20 07/29/22 07:20 Oxygen Delivery Method Room Air Weight: 173 lb Body Mass Index (BMI) 27.9 Intake & Output: Intake and Output for Last 24 Hours 07/27/22 07/28/22 07/29/22 23:59 23:59 23:59 Intake Total 2408.33 / 2408.33 Output Total 500 / 500 950 / 950 Balance 1908.33 / 1908.33 -950 / -950 Lab / Micro Data Result Diagrams: 07/29/22 05:40 Labs: Laboratory Results - last 24 hr 07/29/22 05:40: WBC 12.8 H, RBC 3.56 L, Hgb 10.9 L, Hct 32.8 L, MCV 92.1, MCH 30.6, MCHC 33.2, RDW Std Deviation 44.3 H, RDW Coeff of [place] 13.2, Plt Count 181, MPV 10.2 Physical Exam Const alert, oriented x3 and no apparent distress HEENT normocephalic GI soft to palpation, non-tender and non-distended GI Narrative: fundus firm, mid & below umbilicus Incision - bandage c/d/i Extremity normal to inspection and no calf tenderness Assessment & Plan (1) delivery delivered: COMMENT: POD#1 PLAN: Heme - HDS ID - AF, no signs infection GI - ADAT - no issues ROUtine care
[2022-07-29 12:59] VITALS: BP 97/64; PULSE 67; RESP 18; TEMP 36.6; O2SAT 98
[2022-07-29] MEDS: Ibuprofen 600 MG Tablet PO ×2 (14:12→21:08)
[2022-07-29] MEDS: oxyCODONE 5 MG Tablet PO ×2 (14:59→21:07)
--- NOTE | 2022-07-29 15:11 | NURSING ---
Report given to Alli NELSON and Dejah NELSON, taking over pt care at this time.
[2022-07-29 16:30] VITALS: BP 90/48; PULSE 79; RESP 16; TEMP 36.6; O2SAT 97
[2022-07-29 20:59] VITALS: BP 93/56; PULSE 64; RESP 16; TEMP 36.4; O2SAT 100
[2022-07-30] MEDS: Acetaminophen 500 MG Tablet 1000 MG PO ×3 (00:39→12:13)
[2022-07-30 02:17] VITALS: BP 98/65; PULSE 65; RESP 16; TEMP 36.4; O2SAT 96
[2022-07-30] MEDS: Ibuprofen 600 MG Tablet PO ×2 (02:22→08:29)
[2022-07-30] MEDS: oxyCODONE 5 MG Tablet PO ×2 (02:23→09:39)
[2022-07-30 08:31] VITALS: BP 104/68; PULSE 83; RESP 16; TEMP 36.6
[2022-07-30] MEDS: Senna/Docusate Sodium 1 Tablet PO (09:39)
[2022-07-30 12:21] VITALS: BP 110/72; PULSE 89; RESP 16; TEMP 36.9
--- NOTE | 2022-07-30 12:53 | DCINST_ITS ---
Discharge Instructions Diet Discharge Diet: No restrictions Activity Discharge Activity: May Not Drive and May Shower May resume sexual activity in: 6 weeks Ice area for (Minutes): 15 Weight Bearing Status: Weight bearing as tolerated Lifting Restrictions: Nothing heavier than baby Dressing / Incision Call your doctor if your incision/area has: Continuous Slow Oozing, Sudden Increased Bleeding, Increased Pain/ Swelling, Increased Redness, Foul Smelling Discharge and Swelling at the incision site Call your doctor if you observe: Fever of 101 or Higher, Coldness, Increased Pain, Numbness or Tingling, Change in Color, Inability to urinate, Inability to have a bowel movement, Using more than 1 pad per hour, Shortness of breath, Dizziness, Fainting spells, Swelling in the ankles, Chest pain, Increased palpitations (irregular heartbeat), Calf discomfort and Uncontrolled pain Suture Line Care: Avoid Pulling/Pushing and Avoid Pinching/Bending Remove Dressing in: 2 days Cleanse incision/area with: Soap & Water Follow Up Care Please Follow Up With: Myriam Ivey MD When: 1 week post op 6 week Test Results: Test results from this visit will be discussed in further detail at your follow- up appointment, if applicable. Discharge Plan Admission Admit Date/Time: 07/28/22 09:35 Primary Reason for Your Visit: delivery Attending Provider: Myriam Ivey Instructions Patient Instructions: After a Discharge Orders/Prescriptions Prescriptions: New oxycodone-acetaminophen [Percocet] 10-325 mg tablet 1 tab PO Q6H PRN (Reason: pain) 7 Days Qty: 20 0RF ibuprofen 600 mg tablet 600 mg PO Q6H PRN (Reason: pain) Qty: 30 0RF docusate sodium [Colace] 100 mg capsule 100 mg PO BID Qty: 30 0RF Continued vit,[id number] 1 TABLET tablet 1 tab PO DAILY Disposition Disposition (needs filled in before D/C Order can be placed): Home, Self Care
--- NOTE | 2022-07-30 12:54 | PCM.PN.OB ---
Subjective Subjective Doing well. Pain well controlled. Ambulating & voiding without difficulty. Tolerating regular diet without nausea or vomiting. Lochia is normal. She is breast-feeding. She desires to go home today. Objective Data Objective Data Vital Signs: Vital Signs Temp Pulse Resp BP Pulse Ox O2 Del Method 98.4 F 89 16 110/72 96 Room Air 07/30/22 12:21 07/30/22 12:21 07/30/22 12:21 07/30/22 12:21 07/30/22 02:17 07/30/22 12:21 Oxygen Delivery Method Room Air Weight: 173 lb Body Mass Index (BMI) 27.9 Intake & Output: Intake and Output for Last 24 Hours 07/28/22 07/29/22 07/30/22 23:59 23:59 23:59 Intake Total 2408.33 / 2408.33 Output Total 500 / 500 950 / 950 Balance 1908.33 / 1908.33 -950 / -950 Lab / Micro Data Result Diagrams: 07/29/22 05:40 Physical Exam Const alert and no apparent distress General Appearance: comfortable HEENT normocephalic GI soft to palpation and non-distended GI Narrative: ATTP, FF, dressing intact Assessment & Plan (1) delivery delivered: COMMENT: POD#2 PLAN: Pt doing well. Pain controlled. Desires discharge and meeting milestones to go home. Discharge instructions reviewed.
--- NOTE | 2022-07-30 12:56 | PCM.DC.SUM ---
Providers Date of Admission: 07/28/22 Date of Discharge: 07/30/22 Reason For Visit: REPEAT C SECTION Diagnosis Discharge Diagnosis (1) delivery delivered: Status: Acute Code(s): O82 - Encounter for delivery without indication Plan: Pt doing well. Pain controlled. Desires discharge and meeting milestones to go home. Discharge instructions reviewed. Medications at Discharge Home Medications vits,calcium no.78-iron fumarate-folic acid 29 mg-1 mg tablet 1 tab PO DAILY Check with primary doctor 12/11/19 docusate sodium 100 mg capsule (Colace) 100 mg PO BID #30 caps 07/30/22 ibuprofen 600 mg tablet 600 mg PO Q6H PRN pain #30 tabs 07/30/22 oxycodone-acetaminophen 10 mg-325 mg tablet (Percocet) 1 tab PO Q6H PRN pain 7 days #20 tabs 07/30/22 Hospital Course Operations section Summary of Care Provided Hospital Course: Patient presented for a scheduled repeat section at 39 weeks. See operative report for details. She was meeting milestones for discharge, and was discharged on postoperative day 2. Weight / BMI Weight Weight: 173 lb Body Mass Index (BMI) 27.9 ABG / Lab / Microbiology Data Result Diagrams: 07/29/22 05:40 D/C Instructions Discharge Diet: No restrictions May resume sexual activity in: 6 weeks Ice area for (Minutes): 15 Weight Bearing Status: Weight bearing as tolerated Call your doctor if your incision/area has: Continuous Slow Oozing, Sudden Increased Bleeding, Increased Pain/ Swelling, Increased Redness, Foul Smelling Discharge and Swelling at the incision site Call your doctor if you observe: Fever of 101 or Higher, Coldness, Increased Pain, Numbness or Tingling, Change in Color, Inability to urinate, Inability to have a bowel movement, Using more than 1 pad per hour, Shortness of breath, Dizziness, Fainting spells, Swelling in the ankles, Chest pain, Increased palpitations (irregular heartbeat), Calf discomfort and Uncontrolled pain Suture Line Care: Avoid Pulling/Pushing and Avoid Pinching/Bending Cleanse incision/area with: Soap & Water Please Follow Up With: Myriam Ivey MD When: 1 week post op 6 week Meaningful Use Info Meaningful Use Diagnoses (Choose all that apply): None applicable Discharge Plan Admission Admit Date/Time: 07/28/22 09:35 Primary Reason for Your Visit: delivery Attending Provider: Myriam Ivey Instructions Patient Instructions: After a Discharge Orders/Prescriptions Prescriptions: New oxycodone-acetaminophen [Percocet] 10-325 mg tablet 1 tab PO Q6H PRN (Reason: pain) 7 Days Qty: 20 0RF ibuprofen 600 mg tablet 600 mg PO Q6H PRN (Reason: pain) Qty: 30 0RF docusate sodium [Colace] 100 mg capsule 100 mg PO BID Qty: 30 0RF Continued vit,[id number] 1 TABLET tablet 1 tab PO DAILY Disposition Disposition (needs filled in before D/C Order can be placed): Home, Self Care
== END 2022-07-30 13:25 | disposition home or self-care (01) | DRG 788 ==
PROVIDERS: Obstetrics & Gynecology; Admitting Provider Obstetrics & Gynecology; Visit Provider Obstetrics & Gynecology
PROC: 10D00Z1 Extraction of Products of Conception, Low, Open Approach (ICD-10-PCS; CPT 59514; principal; 2022-07-28 11:45)
DX: O34.211 Maternal care for low transverse scar from previous cesarean delivery (principal); N73.6 Female pelvic peritoneal adhesions (postinfective); O99.892 Other specified diseases and conditions complicating childbirth; O69.81X0 Labor and delivery complicated by cord around neck, without compression, not applicable or unspecified; Z37.0 Single live birth; O62.2 Other uterine inertia; Z3A.39 39 weeks gestation of pregnancy; Z23 Encounter for immunization; Z28.310 Unvaccinated for COVID-19; Z28.9 Immunization not carried out for unspecified reason
CPT/HCPCS: 59050; 85025; 85027; 86850; 86900; 86901; 99218; 99251; J7120; 90686; A4216; G0378; G0463; J2405